=== PATIENT | male | born 1970 | race Hispanic/Latino ===

== ENCOUNTER 2023-11-14 16:48 | Emergency (ER) | payer OTHER, SELFPAY ==
--- OUTSIDE RECORDS SUMMARY | 2023-11-14 16:51 | XMS REPORT | Continuity of Care Document ---
Author Name Unknown Address [address] [facility] [address] th[address] Address [address] [facility] [address] [place] [address] Care Team Providers Care Making Machine Operator Name Role Phone FREEDOM STEARNS Attending Clinician Unavailab le DAVID Attending Clinician Unavailable DAVID Admitting Clinician Unavailable Encounters Start Date/Time End Date/Time Encounter Type Admission Type Attending Clinicians Care Facility Care Department Encounter ID Source 2023-10-29 10:15:00 2023-10-29 10:15:00 Outpatient FREEDOM EDOUARD [id number] [facility] 2021-12-09 00:00:00 2021-12-09 00:00:00 Outpatient [facility] [id number] [facility] Program
[2023-11-14] MEDS ORDERED: FAMOTIDINE 20 MG/2 ML VIAL IV ONE (17:14)
[2023-11-14] MEDS ORDERED: MORPHINE 4 MG/ML SYR ONE ×2 (17:14→20:05)
[2023-11-14] MEDS ORDERED: ONDANSETRON 4 MG/2 ML VIAL ONE (17:14)
[2023-11-14] MEDS ORDERED: NA CHLORIDE 0.9% 1,000 ML ONE (17:15)
[2023-11-14 17:45] LABS: Absolute Eosinophils 0.1 K/uL (0-0.5); Absolute Lymphocytes (CBC) 1.8 K/uL (0.7-4.9); Absolute Monocytes 0.5 K/uL (0.1-1.3); Absolute Neutrophil 6.6 K/uL (1.8-8.0); Basophils % 0.4 % (0-1.3); Eosinophils % 0.9 % (0-4.4); Hemoglobin 12.9 g/dL (13.6-17.9); Lymphocytes % 20.3 % (15.3-44.8); MCH 30.4 pg (27.0-35.0); MCHC 34.1 g/dL (32.0-36.0); MCV 89.1 fL (80-100); MPV 9.2 fL (7.6-11.3); Monocytes % 5.7 % (3.3-12.3); Neutrophils % 72.7 % (41.7-73.7); Nucleated Red Blood Cells % 0.1 % (0-0); Platelets 309 thou/uL (152-406); RBC Red Blood Cell Count 4.26 M/uL (4.33-5.43); Red Cell Distribution Width 13.3 % (12.1-15.2)
[2023-11-14 18:02] LABS: Albumin 3.9 g/dL (3.4-5.0); Albumin/Globulin Ratio 1.1 (1.1-1.8); Anion Gap 10.1 mEq/L (5.0-15.0); Bilirubin Total 0.4 mg/dL (0.2-1.0); Globulin 3.6 g/dL (2.3-3.5); Potassium 3.1 mEq/L (3.5-5.1); Protein, Total 7.5 g/dL (6.4-8.2)
--- NOTE | 2023-11-14 18:39 | RAD REPORT ---
EXAM DESCRIPTION: CTAbdomen Pelvis W Contrast - 11/14/2023 6:28 pm CLINICAL HISTORY: Abdominal pain. ABD PAIN COMPARISON: <Comparisons> TECHNIQUE: Biphasic CT imaging of the abdomen and pelvis was performed with 100 ml non-ionic IV cont rast. All CT scans are performed using dose optimization technique as appropriate and may include automated exposure control or mA/KV adjustment according to patient size. FINDINGS: The lung bases are clear.Moderate fat containing hiatal hernia. The liver demonstrates diffuse fatty infiltration. 3.3 cm low-density lesion is seen in the anterior right lobe. Cholecystectomy. Spleen, pancreas, adrenal glands are within normal limits. Several nonob structing calculi are present in the left kidney. Bilateral benign appearing renal cysts are also pre sent, largest on the left measuring 3.3 cm. No bowel obstruction, free air, free fluid or abscess. Transverse duodenum appears mildly dilated venkat suring up to 4 cm. Small fat containing umbilical hernia. The appendix is normal. No evidence of sig nificant lymphadenopathy. Mild lower lumbar spondylosis. IMPRESSION: No acute intra-abdominal or pelvic finding. 3.3 cm low-density lesion anterior right lobe of the liver. This is indeterminate. Recommend nonemerg ent follow-up MRI liver protocol with contrast. Left nephrolithiasis without hydronephrosis. Mildly dilated transverse duodenum is nonspecific. Follow-up small bowel series may be considered.
[2023-11-14 19:03] LABS: Specific Gravity 1.027 (1.005-1.030); Urine Bilirubin NEGATIVE (Negative); Urine Blood Negative (Negative); Urine Clarity Clear (Clear); Urine Color Light-Yellow (Yellow); Urine Glucose NEGATIVE (Negative); Urine Ketones NEGATIVE (Negative); Urine Microscopic Reflex YN NO UMIC; Urine Nitrite NEGATIVE (Negative); Urine Protein NEGATIVE (Negative); Urine Urobilinogen Normal (Normal)
[2023-11-14] MEDS ORDERED: FENTANYL CITR 100 MCG/2 ML ONE (19:26)
--- NOTE | 2023-11-14 19:48 | ER ---
Nurse's Notes [facility] Name: Cody Painter Age: 53 yrs Sex: Male : 1970 Arrival Date: 11/14/2023 Time: 16:48 Bed 13 Private MD: Diagnosis: Upper abdominal pain, unspecified Presentation: 11/13 17:05 Chief complaint: Patient states: Abdominal pain for 3-4 months. Vomiting blood for 2 ll1 days, no fever. Coronavirus screen: Client denies travel out of the [place] in the last 14 days. At this time, the client does not indicate any symptoms associated with coronavirus-19. Ebola Screen: Patient denies travel to an Ebola-affected area in the 21 days before illness onset. Initial Sepsis Screen: Does the patient meet any 2 criteria? No. Patient's initial sepsis screen is negative. Does the patient have a suspected source of infection? No. Patient's initial sepsis screen is negative. Risk Assessment: Do you want to hurt yourself or someone else? Patient reports no desire to harm self or others. Onset of symptoms was August 15, 2023. 17:05 Method Of Arrival: Ambulatory ll1 17:05 Acuity: NIELS 3 ll1 Historical: - Allergies: 17:05 No Known Allergies; ll1 - PMHx: 17:05 Diabetes mellitus; Hypertensive disorder; ll1 - PSHx: 17:05 Cholecystectomy; ll1 - Immunization history:: Adult Immunizations up to date. - Infectious Disease History:: Denies. - Social history:: Smoking status: Patient denies any tobacco usage or history of. Screenin:00 [facility] ED Fall Risk Assessment (Adult) History of falling in the last 3 months, ha1 including since admission No falls in past 3 months (0 pts) Confusion or Disorientation No (0 pts) Intoxicated or Sedated No (0 pts) Impaired Gait No (0 pts) Mobility Assist Device Used No (0 pt) Altered Elimination No (0 pt) Score/Fall Risk Level 0 - 2 = Low Risk Oriented to surroundings, Maintained a safe environment, Educated pt \\T\\ family on fall prevention, incl call for assistance when getting out of bed, Hourly rounding (assess needs \\T\\ fall precautionary measures) done. Abuse screen: Denies threats or abuse. Denies injuries from another. Nutritional screening: No deficits noted. Tuberculosis screening: No symptoms or risk factors identified. Assessment: 18:08 Reassessment: Patient appears in no apparent distress at this time. Patient and/or db family updated on plan of care and expected duration. Pain level reassessed. Patient is alert, oriented x 3, equal unlabored respirations, skin warm/dry/pink. General: Appears in no apparent distress. comfortable, Behavior is calm, cooperative. Pain: Complains of pain in abdomen. GI: Bowel sounds Abd is soft Abdomen is tender to palpation Reports nausea, vomiting. 19:20 Reassessment: Patient and/or family updated on plan of care and expected duration. Pain ha1 level reassessed. Patient is alert, oriented x 3, equal unlabored respirations, skin warm/dry/pink. pain 8/10 notified care provider. 19:20 Cardiovascular: Capillary refill < 3 seconds Patient's skin is warm and dry. ha1 Respiratory: Airway is patent Respiratory effort is even, unlabored, Respiratory pattern is regular, symmetrical. GI: Abdomen is round obese, Bowel sounds present X 4 quads. Abd is soft Reports lower abdominal pain, upper abdominal pain, nausea, vomiting. 20:18 Reassessment: discharge pending. patient requesting to talk to care provider states " I ha1 forgot to ask some questions". 20:30 Reassessment: Patient and/or family updated on plan of care and expected duration. Pain ha1 level reassessed. Patient is alert, oriented x 3, equal unlabored respirations, skin warm/dry/pink. Patient states feeling better. Patient states symptoms have improved. Vital Signs: 17:05 BP 157 / 97; Pulse 80; Resp 17; Pulse Ox 100% on R/A; Weight 104.33 kg; Height 5 ft. 8 ll1 in. ; Pain 8/10; 17:45 BP 151 / 86; Pulse 72; Resp 18; Pulse Ox 99% on R/A; db 19:30 BP 132 / 85; Pulse 70; Resp 17 S; Pulse Ox 99% on R/A; ha1 20:00 BP 145 / 82; Pulse 68; Resp 17 S; Pulse Ox 99% on R/A; ha1 20:25 BP 149 / 81; Pulse 74; Resp 17 S; Pulse Ox 99% on R/A; ha1 17:05 Body Mass Index 34.97 (104.33 kg, 172.72 cm) ll1 17:05 Pain Scale: Adult ll1 ED Course: 16:56 Patient arrived in ED. mg5 16:58 Ti Reyes FNP-C is PHCP. la1 16:58 Rohit Chambers DO is Attending Physician. la1 16:58 Suzan Cotter, RN is Primary Nurse. db 16:59 PHCP role handed off by Ti Reyes FNP-C kb 16:59 Steffi Leal FNP-C is PHCP. kb 17:01 Arm band placed on Patient placed in an exam room, on a stretcher. mb9 17:07 Triage completed. ll1 17:30 Inserted saline lock: 20 gauge in right antecubital area, using aseptic technique. db Blood collected. 18:30 CT Abd/Pelvis - IV Contrast Only In Process Unspecified. EDMS 19:00 Patient has correct armband on for positive identification. Bed in low position. Call ha1 light in reach. Side rails up X 1. Adult w/ patient. 19:00 Provided Education on: medications . ha1 20:25 No provider procedures requiring assistance completed. IV discontinued, intact, ha1 bleeding controlled, No redness/swelling at site. Pressure dressing applied. Administered Medications: 17:33 Drug: NS 0.9% IV 1000 ml IV at 1 bolus Per protocol; 1000 mL bolus Route: IV; Rate: 1 db bolus; Site: right antecubital; 19:50 Follow up: Response: No adverse reaction; IV Status: Completed infusion; IV Intake: ha1 1000ml 17:33 Drug: Famotidine IVP 20 mg IVP once; dilute with 10 mL 0.9% NaCl; give over 2 minutes db Route: IVP; Site: right antecubital; 17:33 Drug: Ondansetron IVP 4 mg IVP once; over 2 minutes Route: IVP; Site: right antecubital;db 17:33 Drug: morphine IVP or IV 4 mg IVP once over 4 mins Route: IVP; Infused Over: 4 mins; db Site: right antecubital; 19:32 Drug: fentaNYL (PF) IVP 25 mcg IVP once Route: IVP; Site: right antecubital; ha1 20:00 Follow up: Response: No adverse reaction; Pain is unchanged, physician notified; RASS: ha1 Alert and Calm (0) 20:00 Drug: morphine IVP or IV 4 mg IVP once over 4 mins Route: IVP; Infused Over: 4 mins; ha1 Site: right antecubital; 20:30 Follow up: Response: No adverse reaction; Marked relief of symptoms; Pain is decreased; ha1 RASS: Alert and Calm (0) 20:00 Drug: Potassium Chloride PO 40 mEq PO once Route: PO; ha1 20:30 Follow up: Response: No adverse reaction ha1 Medication: 20:30 VIS not applicable for this client. ha1 Intake: 19:50 IV: 1000ml; Total: 1000ml. ha1 Outcome: 19:47 Discharge ordered by . kylee 20:25 Discharged to home ambulatory, with family, ha1 20:25 Condition: stable 20:25 Discharge instructions given to patient, family, Instructed on discharge instructions, follow up and referral plans. medication usage, Demonstrated understanding of instructions, follow-up care, medications, Prescriptions given X 2, 20:30 Patient left the ED. ha1 Signatures: Dispatcher [employer] EDMS Steffi Leal, FARM GENERAL MANAGER-C FARM GENERAL MANAGER-Ckb Ti Reyes FARM GENERAL MANAGER-C FARM GENERAL MANAGER-Cla1 Vanessa Au RN RN 1 Yeni May RN RN ha1 Suazn Cotter RN RN db Breneman, Mary Beth, RN RN 9 Radha Armstrong 5
--- NOTE | 2023-11-14 19:48 | EDPHYS ---
Physician Documentation [facility] Name: Cody Painter Age: 53 yrs Sex: Male : 1970 Arrival Date: 11/14/2023 Time: 16:48 Bed 13 Private MD: ED Physician Rohit Chambers HPI: 11/13 17:08 This 53 yrs old Male presents to ER via Ambulatory with complaints of kb Abdominal Pain, Vomiting - BLOOD. 17:08 Pt is a 53 year old male who presents for LUQ pain that started 4 months ago. States he kb has been to the dr several times. Was treated for diverticulitis, then gastritis, now Hpylori. States last dose of antibiotics should be tomorrow. Came in today because he has noticed trace amount of blood in vomit starting yesterday. States he has not had any testing/scans done. Reports nausea, vomiting, weight loss due to decreased eating. . Historical: - Allergies: 17:05 No Known Allergies; ll1 - PMHx: 17:05 Diabetes mellitus; Hypertensive disorder; ll1 - PSHx: 17:05 Cholecystectomy; ll1 - Immunization history:: Adult Immunizations up to date. - Infectious Disease History:: Denies. - Social history:: Smoking status: Patient denies any tobacco usage or history of. ROS: 17:08 Constitutional: As per HPI kb Exam: 17:08 Constitutional: This is a well developed, well nourished patient who is awake, alert, kb and in no acute distress. Head/Face: Normocephalic, atraumatic. ENT: Moist Mucous membranes Cardiovascular: Regular rate Respiratory: Respirations even and unlabored. No increased work of breathing. Talking in full sentences Skin: Warm, dry with normal turgor. Normal color. MS/ Extremity: Pulses equal, no cyanosis. Neurovascular intact. Full, normal range of motion. Neuro: Awake and alert, GCS 15, oriented to person, place, time, and situation. Moves all extremities. Normal gait. 17:08 Abdomen/GI: Inspection: abdomen appears normal, Bowel sounds: normal, Palpation: soft, in all quadrants, mild abdominal tenderness, in the left lower quadrant, moderate abdominal tenderness, in the left upper quadrant, Vital Signs: 17:05 BP 157 / 97; Pulse 80; Resp 17; Pulse Ox 100% on R/A; Weight 104.33 kg; Height 5 ft. 8 ll1 in. ; Pain 8/10; 17:45 BP 151 / 86; Pulse 72; Resp 18; Pulse Ox 99% on R/A; db 19:30 BP 132 / 85; Pulse 70; Resp 17 S; Pulse Ox 99% on R/A; ha1 20:00 BP 145 / 82; Pulse 68; Resp 17 S; Pulse Ox 99% on R/A; ha1 20:25 BP 149 / 81; Pulse 74; Resp 17 S; Pulse Ox 99% on R/A; ha1 17:05 Body Mass Index 34.97 (104.33 kg, 172.72 cm) ll1 17:05 Pain Scale: Adult ll1 MDM: 16:59 Patient medically screened. kb 17:08 Differential diagnosis: diverticulitis, gastritis, gastroesophageal reflux disease, GI kb Bleed, non-specific abd pain, pancreatitis. Data reviewed: vital signs, nurses notes. 19:46 Consideration of Admission/Observation Escalation of care including kb admission/observation considered. admission considered but vss, labs and CT without acute findings. Pt educated to follow up with GI.. Management of patient was discussed with the following: Dr Chambers. Historians other than the Patient: Spouse/Significant Other: . Counseling: I had a detailed discussion with the patient and/or guardian regarding the historical points, exam findings, and any diagnostic results supporting the discharge/admit diagnosis, lab results, radiology results, the need for outpatient follow up, a family practitioner, to return to the emergency department if symptoms worsen or persist or if there are any questions or concerns that arise at home. 11/13 17:08 Order name: CBC with Diff; Complete Time: 17:49 kb 11/13 17:08 Order name: CMP; Complete Time: 18:03 kb 11/13 17:08 Order name: Lipase; Complete Time: 18:03 kb 11/13 17:08 Order name: Urinalysis w/ reflexes; Complete Time: 19:20 kb 11/13 17:08 Order name: CT Abd/Pelvis - IV Contrast Only; Complete Time: 19:20 kb 11/13 17:08 Order name: IV Saline Lock; Complete Time: 17:38 kb 11/13 17:08 Order name: Labs collected and sent; Complete Time: 17:38 kb Administered Medications: 17:33 Drug: NS 0.9% IV 1000 ml IV at 1 bolus Per protocol; 1000 mL bolus Route: IV; Rate: 1 db bolus; Site: right antecubital; 19:50 Follow up: Response: No adverse reaction; IV Status: Completed infusion; IV Intake: ha1 1000ml 17:33 Drug: Famotidine IVP 20 mg IVP once; dilute with 10 mL 0.9% NaCl; give over 2 minutes db Route: IVP; Site: right antecubital; 17:33 Drug: Ondansetron IVP 4 mg IVP once; over 2 minutes Route: IVP; Site: right antecubital;db 17:33 Drug: morphine IVP or IV 4 mg IVP once over 4 mins Route: IVP; Infused Over: 4 mins; db Site: right antecubital; 19:32 Drug: fentaNYL (PF) IVP 25 mcg IVP once Route: IVP; Site: right antecubital; ha1 20:00 Follow up: Response: No adverse reaction; Pain is unchanged, physician notified; RASS: ha1 Alert and Calm (0) 20:00 Drug: morphine IVP or IV 4 mg IVP once over 4 mins Route: IVP; Infused Over: 4 mins; ha1 Site: right antecubital; 20:30 Follow up: Response: No adverse reaction; Marked relief of symptoms; Pain is decreased; ha1 RASS: Alert and Calm (0) 20:00 Drug: Potassium Chloride PO 40 mEq PO once Route: PO; ha1 20:30 Follow up: Response: No adverse reaction ha1 Disposition: 17:30 I was immediately available on-site in the Emergency Department for consultation in the ms3 care of the patient. Disposition Summary: 11/14/23 19:47 Discharge Ordered Notes: Location: Home kb Condition: Stable kb Diagnosis - Upper abdominal pain, unspecified kb Followup: kb - With: Emergency Department - When: As needed - Reason: Worsening of condition Followup: kb - With: Private Physician - When: 2 - 3 days - Reason: Recheck today's complaints, Continuance of care, Re-evaluation by your physician Discharge Instructions: - Discharge Summary Sheet kb - Abdominal Pain, Adult, [id number] kb Forms: - Medication Reconciliation Form kb - Antibiotic Education kb - Prescription Opioid Use kb - Patient Portal Instructions kb - Leadership Thank You Letter kb Prescriptions: - Zofran 4 mg Oral tablet - take 1 tablet ORAL route every 6 hours As needed; 12 tablet; Refills: 0, kb Product Selection Permitted - dicyclomine 20 mg Oral tablet - take 1 tablet ORAL route 4 times per day As needed; 20 tablet; Refills: 0, kb Product Selection Permitted Signatures: Dispatcher [employer] Steffi Lundberg, Vanessa Van RN RN ll1 Rohit Chambers DO DO ms3 Yeni May RN RN ha1 Suzan Cotetr, RN RN db
[2023-11-14] MEDS ORDERED: POTASSIUM CL SA 10 MEQ TAB PO ONE (20:04)
[2023-11-14 21:11] VITALS: BP 151/86; O2SAT 99
== END 2023-11-14 20:30 | disposition home or self-care (01) ==
LOC: ER 16:48
DX: R10.12 Left upper quadrant pain (principal)
CPT/HCPCS: 36415; 74177; 80053; 81003; 83690; 85025; 96361; 96374; 96375; 99284; J2405; J3010; J7030; Q9967